=== PATIENT | female | born 1935 | race Caucasian/White ===

== ENCOUNTER 2023-01-25 14:23 | Outpatient (CLI) | payer MEDICARE ==
[~2023-01-25] VITALS: Ht 162.6 cm; Wt 63.5 kg
[~2023-01-25 14:23] MED LIST: ACET65TA OR; ALBUTEROL SULFATE 2.5MG/0.5ML INH NEB SOLN INH PRN; ASPI81TA3 OR; CALCCHW12 OR; COZA50TA18 OR; EPINEPHrine INJ 1 MG/ML 1ML AMP IM PRN; GLIM1TAB OR; GLUC1000 OR; MULTIVIT OR; NABU500T OR; Onglyza OR; PERC5TAB8 OR; diphenhydrAMINE 50MG/ML VIAL IV PRN; methylPREDNISolone 125MG 2ML VIAL IV PRN; nabumetone OR
[2023-01-25] MEDS ORDERED: NS 1,000 ML IV SCH (14:30)
[2023-01-25] MEDS ORDERED: FERRIC CARBOXYMALTOSE INJ 750 MG in NS 250 ML (>50kg) IV ONE ×3 (14:30)
[2023-01-25 14:35] VITALS: BP 142/63
[2023-01-25] MEDS ORDERED: HYDR200T3 PO (16:08)
[2023-01-25] MEDS ORDERED: JANU100T PO (16:09)
[2023-01-25] MEDS ORDERED: NABU-71 PO (16:10)
[2023-01-25 16:30] VITALS: BP 145/64
== END 2023-01-25 16:30 ==
LOC: M INFU 14:23
PROVIDERS: ATTEND Internal Medicine Hematology
DX: D50.9 Iron deficiency anemia, unspecified (principal); Z88.8 Allergy status to other drugs, medicaments and biological substances
CPT/HCPCS: 96365; J1439

== ENCOUNTER → 2024-04-10 | Outpatient (CLI) | payer OTHER, MEDICAID ==
[~2024-04-10] MED LIST changes: -ALBUTEROL SULFATE 2.5MG/0.5ML INH NEB SOLN INH PRN; -EPINEPHrine INJ 1 MG/ML 1ML AMP IM PRN; +HYDR200T46 PO; +JANU100T PO; +NABU-71 PO; -diphenhydrAMINE 50MG/ML VIAL IV PRN; -methylPREDNISolone 125MG 2ML VIAL IV PRN
== END ==
LOC: M WHC 09:04
PROVIDERS: ATTEND Family Medicine
DX: Z13.820 Encounter for screening for osteoporosis (principal); M85.851 Other specified disorders of bone density and structure, right thigh; M85.852 Other specified disorders of bone density and structure, left thigh

== ENCOUNTER → 2024-08-12 | Outpatient (CLI) | payer OTHER, MEDICAID ==
[2024-08-12 13:48] LABS: HEMOGLOBIN 10.4 g/dl (12.0-15.5); MEAN CORPUSCULAR HEMOGLOBIN 26.1 pg (27.0-33.0); MEAN CORPUSCULAR HGB CONC 30.6 g/dl (32.0-36.5); MEAN CORPUSCULAR VOLUME 85.4 fl (80.0-96.0); PLATELET COUNT, AUTOMATED 495 10^3/uL (150-450); RED BLOOD COUNT 3.98 10^6/uL (4.00-5.40)
[2024-08-12 13:52] LABS: PERCENT SATURATION 10.4 % (13.2-45.0)
[2024-08-12 13:54] LABS: FERRITIN 11.5 NG/ML (7.3-270.7)
== END ==
LOC: M PLALAB 11:03
PROVIDERS: ATTEND Internal Medicine Hematology
DX: D50.0 Iron deficiency anemia secondary to blood loss (chronic) (principal)

== ENCOUNTER 2024-09-02 12:39 | Outpatient (CLI) | payer OTHER, MEDICAID ==
[~2024-09-02] VITALS: Ht 162.6 cm; Wt 60.0 kg
[~2024-09-02 12:39] MED LIST changes: +ALBUTEROL SULFATE 2.5MG/0.5ML INH NEB SOLN INH PRN; +EPINEPHrine INJ 1 MG/ML 1ML AMP IM PRN; +NS 1,000 ML IV SCH; +diphenhydrAMINE 50MG/ML VIAL IV PRN; +methylPREDNISolone 125MG 2ML VIAL IV PRN
[2024-09-02 13:00] VITALS: BP 133/63; O2SAT 99
[2024-09-02] MEDS: IRON SUCROSE 300 MG in NS 250 ML IV ONE (13:40)
[2024-09-02 15:44] VITALS: BP 136/64; O2SAT 96
== END 2024-09-02 15:45 | disposition home or self-care (01) ==
LOC: M INFU 12:39
PROVIDERS: ATTEND Internal Medicine Hematology
DX: D50.0 Iron deficiency anemia secondary to blood loss (chronic) (principal); Z88.8 Allergy status to other drugs, medicaments and biological substances
CPT/HCPCS: 96365; 96366; J1756

== ENCOUNTER 2024-09-09 12:40 | Outpatient (CLI) | payer OTHER, MEDICAID ==
[~2024-09-09] VITALS: Ht 162.6 cm; Wt 59.4 kg
[2024-09-09 12:40] VITALS: BP 161/72; O2SAT 99
[2024-09-09] MEDS: IRON SUCROSE 300 MG in NS 250 ML OVER 90 MIN. IV ONE (12:55)
[2024-09-09 14:33] VITALS: BP 143/67; O2SAT 99
== END 2024-09-09 14:40 ==
LOC: M INFU 12:40
PROVIDERS: ATTEND Internal Medicine Hematology
DX: D50.9 Iron deficiency anemia, unspecified (principal); Z88.8 Allergy status to other drugs, medicaments and biological substances
CPT/HCPCS: 96365; 96366; J1756

== ENCOUNTER 2024-09-16 14:00 | Outpatient (CLI) | payer OTHER, MEDICAID ==
[~2024-09-16] VITALS: Ht 160 cm; Wt 60.9 kg
[2024-09-16] MEDS: IRON SUCROSE 300 MG in NS 250 ML IV ONE (14:27)
[2024-09-16 16:05] VITALS: BP 144/69; O2SAT 99
== END 2024-09-16 16:10 ==
LOC: M INFU 14:00
PROVIDERS: ATTEND Internal Medicine Hematology
DX: D50.9 Iron deficiency anemia, unspecified (principal); Z88.8 Allergy status to other drugs, medicaments and biological substances
CPT/HCPCS: 96365; 96366; J1756

== ENCOUNTER → 2024-11-13 | Outpatient (CLI) | payer OTHER, MEDICAID ==
[~2024-11-13] MED LIST changes: -ALBUTEROL SULFATE 2.5MG/0.5ML INH NEB SOLN INH PRN; -EPINEPHrine INJ 1 MG/ML 1ML AMP IM PRN; -NS 1,000 ML IV SCH; -diphenhydrAMINE 50MG/ML VIAL IV PRN; -methylPREDNISolone 125MG 2ML VIAL IV PRN
[2024-11-13 17:03] LABS: BASO % 0.6 % (0.0-1.0); EOS # 0.1 10^3/uL (0.0-0.5); EOS % 1.6 % (0.0-3.0); HEMATOCRIT 38.8 % (36.0-47.0); HEMOGLOBIN 11.9 g/dl (12.0-15.5); LYMPH # 1.6 10^3/uL (1.5-5.0); LYMPH % 23.9 % (24.0-44.0); MEAN CORPUSCULAR HEMOGLOBIN 28.5 pg (27.0-33.0); MEAN CORPUSCULAR HGB CONC 30.7 g/dl (32.0-36.5); MONO # 0.5 10^3/uL (0.0-0.8); MONO % 6.9 % (2.0-8.0); NEUTROPHILS # 4.6 10^3/uL (1.5-8.5); NEUTROPHILS % 66.6 % (36.0-66.0); PLATELET COUNT, AUTOMATED 401 10^3/uL (150-450); RED BLOOD COUNT 4.17 10^6/uL (4.00-5.40); WHITE BLOOD COUNT 6.9 10^3/uL (4.0-10.0)
[2024-11-13 17:30] LABS: ALBUMIN 3.7 G/DL (3.2-5.2); ALKALINE PHOSPHATASE 80 U/L (35-104); ALT/SGPT 14 U/L (7.0-40); AST/SGOT 17 U/L (<34); BILIRUBIN,TOTAL 0.3 MG/DL (0.3-1.2); BLOOD UREA NITROGEN 19 MG/DL (9-23); CALCIUM LEVEL 9.3 MG/DL (8.3-10.6); CARBON DIOXIDE LEVEL 27 MMOL/L (20-31); CHLORIDE LEVEL 106 MMOL/L (98-107); CREATININE FOR GFR 0.59 MG/DL (0.55-1.30); GLOMERULAR FILTRATION RATE > 60.0 (>32); GLUCOSE, FASTING 125 MG/DL (74-106); POTASSIUM SERUM 4.4 MMOL/L (3.5-5.1); SODIUM LEVEL 140 MMOL/L (136-145); TOTAL PROTEIN 6.7 G/DL (5.7-8.2)
[2024-11-13 17:31] LABS: FERRITIN 42.2 NG/ML (7.3-270.7)
[2024-11-13 17:32] LABS: THYROID STIMULATING HORMONE 1.946 uIU/ML (0.55-4.78)
[2024-11-13 17:33] LABS: FREE T4 1.65 NG/DL (0.89-1.76)
== END ==
LOC: M PLALAB 11:20
PROVIDERS: ATTEND Internal Medicine Hematology
DX: D50.0 Iron deficiency anemia secondary to blood loss (chronic) (principal); R53.83 Other fatigue